=== PATIENT | female | born 1975 | race Two or more races ===

== ENCOUNTER 2024-06-28 17:52 | Emergency (ER) | payer BC, SELFPAY ==
[2024-06-28 17:53] VITALS: BMI 48.0
[2024-06-28 18:39] VITALS: BP 148/93; PULSE 82; RESP 20; TEMP 37.1; O2SAT 97
--- NOTE | 2024-06-28 18:40 | EKG_ITS ---
[facility] Test Date: 2024-06-28 Pat Name: ALONA NORRIS Department: Room: - Gender: Female Survey Questionnaire Designer: : 1975 Requested By: Ronny Tamayo Order Number: [id number] Reading MD: Ronny Tamayo Measurements Intervals [place] Rate: 75 P: 55 TX: 151 QRS: -3 QRSD: 88 T: 81 QT: 370 QTc: 414 Interpretive Statements SINUS RHYTHM POSSIBLE ANTERIOR MYOCARDIAL INFARCTION , OF INDETERMINATE AGE [30 ms Q WAVE IN V3/V4, OR R < 0.2 mV IN V4] No previous ECG available for comparison /store/S0/[id number].pdf
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
[2024-06-28 19:19] LABS: Basophils # (Auto) 0.1 Thou/mm3 (0.0-0.2); Basophils % (Auto) 1 % (0-2.5); Eosinophils # (Auto) 0.1 Thou/mm3 (0.0-0.5); Eosinophils % (Auto) 1 % (0-10); Hematocrit 48.7 % (36.0-46.0); Immature Granulocytes % (Auto) 0 % (0-0); Immature Granulocytes Auto 0.03 Thou/mm3 (0.00-0.00); Lymphocytes # (Auto) 2.3 Thou/mm3 (1.0-4.8); Lymphocytes % (Auto) 21 % (10-50); Mean Corpuscular HGB Conc 32.9 g/dl (31.0-37.0); Mean Corpuscular Hemoglobin 28.9 pg (25.0-35.0); Mean Corpuscular Volume 88 fL (80-100); Monocytes # (Auto) 0.7 Thou/mm3 (0.0-0.8); Monocytes % (Auto) 7 % (0-12); Neutrophils # (Auto) 7.8 Thou/mm3 (1.8-7.7); Neutrophils % (Auto) 71 % (37-80); Nucleated Red Blood Cell % 0 /100 WBC (0); Platelet Count 206 Thou/mm3 (140-440); RDW Standard Deviation 42.1 fL (36.4-46.3); Red Blood Count 5.54 Miln/mm3 (4.00-5.20); White Blood Count 10.9 Thou/mm3 (3.6-11.0)
[2024-06-28 19:42] LABS: Alanine Aminotransferase 16 U/L (10-49); Albumin, Serum 4.2 gm/dL (3.5-5.0); Albumin/Globulin Ratio 1.4 (1.2-2.2); Alkaline Phosphatase 72 U/L (46-116); Anion Gap 10 (7-16); Aspartate Amino Transferase 19 U/L (0-34); BUN/Creatinine Ratio 19 Ratio (12-20); Bilirubin,Total 0.5 mg/dL (0.3-1.2); Blood Urea Nitrogen 13 mg/dL (9-23); Calcium 9.2 mg/dL (8.3-10.6); Calcium (Corrected) 9.2 mg/dL (8.5-10.1); Chloride 102 mMol/L (98-107); Creatinine (Component) 0.7 mg/dL (0.6-1.3); Estimated Creatinine Clearance 131.2 mL/min (>60); Globulin 3.1 gm/dL (2.3-3.5); Glucose 108 mg/dL (74-106); Lipase 29 U/L (12-53); Osmolality,Calculated 284 (275-295); Potassium 3.3 mMol/L (3.4-5.1); Sodium 142 mMol/L (136-145); Total Protein 7.3 gm/dL (5.7-8.2); Troponin I < 0.020 ng/mL (0.0-0.045); eGFR > 60 See Note
[2024-06-28 20:03] LABS: HCG,Qualitative Serum Negative
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
[2024-06-28 22:05] VITALS: BP 146/94; PULSE 74; RESP 20; TEMP 36.9; O2SAT 95
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
[2024-06-28] MEDS: IBUPROFEN TAB 600 MG TABLET PO (23:18)
[2024-06-28] MEDS: HYDROcodone/APAP 5/325 TABLET 1 TAB PO (23:18)
[2024-06-28] MEDS: POTASSIUM CHLORIDE 20 mEq TABCR 40 MEQ PO (23:18)
[2024-06-28 23:26] VITALS: BP 131/81; PULSE 70; RESP 17; TEMP 36.6; O2SAT 96
== END 2024-06-28 23:31 | disposition home or self-care (01) ==
PROVIDERS: Physician Assistant; Emergency Provider Emergency Medicine; PCP Family Medicine
DX: S20.01XA Contusion of right breast, initial encounter (principal); S09.90XA Unspecified injury of head, initial encounter; M25.532 Pain in left wrist; I10 Essential (primary) hypertension; V49.40XA Driver injured in collision with unspecified motor vehicles in traffic accident, initial encounter; Y92.410 Unspecified street and highway as the place of occurrence of the external cause
CPT/HCPCS: 36415; 70450; 71250; 72125; 73090; 73110; 74176; 80053; 83690; 84484; 84703; 85025; 93005; 99284; A9270